=== PATIENT | female | born 1965 | race Caucasian/White ===

== ENCOUNTER → 2017-04-28 | Outpatient (CLI) | payer MEDICARE, MEDICAID ==
[~2017-04-28] MED LIST: ADDERALL10 MG PO; ADVIL200 MG PO; AMPHETAMINE MIX PO; CALCIUM 1200 601 SGL PO; CALCIUM 600 W/V1 TAB PO; CENTRUM SILVER1 TA1 PO; CENTRUM SILVER1 TA3 PO; CLARITIN 1010 MG/TAB PO; CLEOCIN HCL300 MG PO; CYMBALTA 60MG60 MG PO; DITROPAN 5MG TAB5 MG PO; EPA FISH OIL1000 MG PO; ESTRADIOL0.5 MG PO; IBUPROFEN200 M1 PO; LIDODERM PATCH TP; LORATADINE D 101 T24 PO; MACRODANTIN50 MG/CA1 PO; MELATONIN5 MG PO; MILK OF MA400 MG/51 PO; NEURONTIN300 MG/CAP PO; OXYBUTYNIN5 MG PO; OXYCODONE5 M1 PO; PROBIOTIC FORMU1 CAP PO; PROTONIX 40MG T40 MG PO; PROTONIX40 MG/Pack PO; ROXICODONE 55 MG/TAB PO; SUPER EPA 1201200 MG PO; VALIUM 10MG10 MG/TAB PO; VALIUM10 MG PO; VITAMIN D2000 I1 PO; ZOLPIDEM10 MG PO; [UNRECOGNIZED DRUG - OTHER] PO
== END ==
LOC: MC.RAD 04-21 11:00
DX: Z12.31 Encounter for screening mammogram for malignant neoplasm of breast (principal)

== ENCOUNTER → 2018-05-05 | Outpatient (CLI) | payer MEDICARE, MEDICAID | LOC: MC.RAD 11:38 | DX: Z12.31 Encounter for screening mammogram for malignant neoplasm of breast (principal) ==

== ENCOUNTER → 2019-07-01 | Outpatient (CLI) | payer MEDICARE, MEDICAID | LOC: MC.RAD 14:09 | DX: Z12.31 Encounter for screening mammogram for malignant neoplasm of breast (principal) ==

== ENCOUNTER 2019-10-25 07:21 | Day surgery (SDC) | payer MEDICARE, MEDICAID ==
[~2019-10-25] VITALS: Ht 160 cm; Wt 52.3 kg
[2019-10-25 08:20] VITALS: BP 113/74; PULSE 97; TEMP 98.2
--- NOTE | 2019-10-25 08:41 | NUR ---
TO RM AT 0728- CALL LIGHT IN REACH MOTHER AT BEDSIDE.
[2019-10-25] MEDS ORDERED: PROAIR HFA0.09 MG/AC IH (08:48)
[2019-10-25] MEDS ORDERED: ADDERALL20 MG PO ×2 (08:49)
[2019-10-25] MEDS ORDERED: ALLEGRA 180MG180 MG PO (08:50)
[2019-10-25] MEDS ORDERED: ASPIRIN E.C. 8181 MG PO (08:51)
[2019-10-25] MEDS ORDERED: LIPITOR20 MG PO (08:51)
[2019-10-25] MEDS ORDERED: UCERIS PO (08:52)
[2019-10-25] MEDS ORDERED: CYMBALTA 60MG60 MG PO (08:53)
[2019-10-25] MEDS ORDERED: RESTASIS MULTI5.5 ML OU (08:53)
[2019-10-25] MEDS ORDERED: VALIUM 10MG10 MG/TAB PO (08:54)
[2019-10-25] MEDS ORDERED: STOOL SOFTENER100 M2 PO (08:55)
[2019-10-25] MEDS ORDERED: PROBIOTIC FORMU1 CAP PO (08:56)
[2019-10-25] MEDS ORDERED: MASON NATURAL2000 IU PO (08:57)
[2019-10-25] MEDS ORDERED: CALCIUM CARBON650 M2 PO (08:58)
[2019-10-25] MEDS ORDERED: PREMARIN VAG42.5 GM VG (08:59)
[2019-10-25] MEDS ORDERED: FLONASEALLERGY NS (09:00)
[2019-10-25] MEDS ORDERED: NEURONTIN300 MG/CAP PO (09:02)
[2019-10-25] MEDS ORDERED: MOVANTIK25 MG PO (09:03)
[2019-10-25] MEDS ORDERED: MIRALAX119G PO (09:05)
[2019-10-25] MEDS ORDERED: MOBIC15 MG PO (09:05)
[2019-10-25] MEDS ORDERED: CENTRUM SILVER1 CTB PO (09:06)
[2019-10-25] MEDS ORDERED: FISH OIL CONCEN1 SG2 PO (09:07)
[2019-10-25] MEDS ORDERED: MASON NATURAL1200 MG PO ×2 (09:07→09:08)
[2019-10-25] MEDS ORDERED: DITROPAN XL10 MG PO (09:09)
[2019-10-25] MEDS ORDERED: PROTONIX 40MG T40 MG PO (09:09)
[2019-10-25] MEDS ORDERED: OXYCONTIN30 MG PO (09:10)
[2019-10-25] MEDS ORDERED: ROXICODONE15 MG PO (09:11)
[2019-10-25] MEDS ORDERED: COOL OU (09:12)
[2019-10-25] MEDS ORDERED: SOOTHE OU (09:12)
[2019-10-25] MEDS ORDERED: NATURAL POTASS595 MG PO (09:13)
[2019-10-25] MEDS ORDERED: CLEOCIN HC150 MG/CAP PO (09:15)
[2019-10-25 11:03] VITALS: TEMP 98.4
[2019-10-25 11:40] VITALS: BP 100/67; PULSE 76
--- NOTE | 2019-10-25 11:40 | NUR ---
TO RM 8 PER CART FROM PACU. ALERT ORIENTED X3,TALKING TO STAFF AND HER MOTHER. LEFT LEG ELEVATED ON PILLOW,WITH ICE OVER KNEE. DENIES NAUSEA OR VOMITNG AND RECEIVED WATER NO NEW C/O PAIN SINCE ADMISSION AND NO SIGNS OF DISTRESS NOTED.
[2019-10-25 11:55] VITALS: BP 106/65; PULSE 79
--- NOTE | 2019-10-25 11:55 | NUR ---
ABLE TO WIGGLE TOES.
[2019-10-25 12:10] VITALS: BP 99/70; PULSE 74
--- NOTE | 2019-10-25 12:10 | NUR ---
RECEIVED UMBERTO. PUDDING. NO OTHER CHANGES
[2019-10-25 12:25] VITALS: BP 100/63; PULSE 74
--- NOTE | 2019-10-25 12:25 | NUR ---
ATE 100% AND TOLERATED.
--- NOTE | 2019-10-25 12:45 | NUR ---
UP TO BEDSIDE COMMODE WITH ASSIST. VOIDED AND TRANSFERED BACK TO BED. PATIENT DID NOT C/O OF ANY PAIN OR NOTED ANY GRIMACE.
--- NOTE | 2019-10-25 13:05 | NUR ---
RECEIVED DISCHARGE INSTRUCTIONS AND VERBALIZED UNDERSTANDING. DISCONTINUED IV AND INT PATIENTS MOTHER ASSISTING HER TO GET DRESSED.
--- NOTE | 2019-10-25 13:27 | NUR ---
DISCHARGED PER WC BY NURSING STAFF TO PRIVATE CAR IN CARE OF MOTHER.
== END 2019-10-25 13:30 | disposition home or self-care (01) ==
LOC: SDCO 07:21
DX: S83.232A Complex tear of medial meniscus, current injury, left knee, initial encounter (principal); M65.9 Synovitis and tenosynovitis, unspecified; M16.12 Unilateral primary osteoarthritis, left hip; G89.29 Other chronic pain; R29.6 Repeated falls; G43.909 Migraine, unspecified, not intractable, without status migrainosus; J43.9 Emphysema, unspecified; Z90.89 Acquired absence of other organs; Z88.0 Allergy status to penicillin; Z91.040 Latex allergy status; Z79.899 Other long term (current) drug therapy; Z79.891 Long term (current) use of opiate analgesic; Z88.1 Allergy status to other antibiotic agents; Z88.6 Allergy status to analgesic agent; Z82.3 Family history of stroke; Z80.8 Family history of malignant neoplasm of other organs or systems; Z83.3 Family history of diabetes mellitus; Z82.49 Family history of ischemic heart disease and other diseases of the circulatory system
CPT/HCPCS: J0690; J1100; J1170; J1885; J2405; J2704; J3010; J7120

== ENCOUNTER → 2020-03-22 | Outpatient (CLI) | payer MEDICARE, MEDICAID ==
[~2020-03-22] MED LIST changes: +ADDERALL20 MG PO; +ALLEGRA 180MG180 MG PO; +ASPIRIN E.C. 8181 MG PO; +CALCIUM CARBON650 M2 PO; +CENTRUM SILVER1 CTB PO; +CLEOCIN HC150 MG/CAP PO; +COOL OU; +DITROPAN XL10 MG PO; +FISH OIL CONCEN1 SG2 PO; +FLONASEALLERGY NS; +LIPITOR20 MG PO; +MASON NATURAL1200 MG PO; +MASON NATURAL2000 IU PO; +MIRALAX119G PO; +MOBIC15 MG PO; +MOVANTIK25 MG PO; +NATURAL POTASS595 MG PO; +OXYCONTIN30 MG PO; +PREMARIN VAG42.5 GM VG; +PROAIR HFA0.09 MG/AC IH; +RESTASIS MULTI5.5 ML OU; +ROXICODONE15 MG PO; +SOOTHE OU; +STOOL SOFTENER100 M2 PO; +UCERIS PO
== END ==
LOC: COL.RAD 12:02
DX: M51.36 Other intervertebral disc degeneration, lumbar region (principal); M51.26 Other intervertebral disc displacement, lumbar region; M51.27 Other intervertebral disc displacement, lumbosacral region; M48.061 Spinal stenosis, lumbar region without neurogenic claudication; M48.07 Spinal stenosis, lumbosacral region

== ENCOUNTER → 2020-11-09 | Outpatient (CLI) | payer MEDICARE, MEDICAID | LOC: DIET.TELE 11-07 13:36 | DX: E43 Unspecified severe protein-calorie malnutrition (principal); Z68.1 Body mass index [BMI] 19.9 or less, adult | CPT/HCPCS: 98972; G0270 ==